=== PATIENT | female | born 1935 | race Caucasian/White ===

== ENCOUNTER 2016-03-08 14:17 | Emergency (ER) | payer OTHER ==
[~2016-03-08] VITALS: Ht 160 cm; Wt 44.8 kg
[2016-03-08] MEDS ORDERED: ZOLOFT50 MG PO (15:34)
[2016-03-08] MEDS ORDERED: DEPAKOTE125 MG PO (15:35)
[2016-03-08] MEDS ORDERED: TRAZODONE HCL50 MG PO (15:35)
[2016-03-08] MEDS ORDERED: LISINOPRIL20 MG PO (15:36)
[2016-03-08] MEDS ORDERED: REMERON15 M2 PO (15:36)
[2016-03-08 18:18] VITALS: BP 144/75
== END 2016-03-08 18:15 | disposition home or self-care (01) ==
LOC: EME 14:17
DX: S09.90XA Unspecified injury of head, initial encounter (principal); F03.90 Unspecified dementia, unspecified severity, without behavioral disturbance, psychotic disturbance, mood disturbance, and anxiety; E78.5 Hyperlipidemia, unspecified; I10 Essential (primary) hypertension; W18.30XA Fall on same level, unspecified, initial encounter; Z88.1 Allergy status to other antibiotic agents
CPT/HCPCS: 70450; 72125; 99281; 99284

== ENCOUNTER 2016-03-17 19:13 | Emergency (ER) | payer OTHER ==
[~2016-03-17 19:13] MED LIST: DEPAKOTE125 MG PO; LISINOPRIL20 MG PO; REMERON15 M2 PO; TRAZODONE HCL50 MG PO; ZOLOFT50 MG PO
== END 2016-03-17 20:15 | disposition left against medical advice (07) ==
LOC: EME 19:13
DX: S09.90XA Unspecified injury of head, initial encounter (principal); Z53.1 Procedure and treatment not carried out because of patient's decision for reasons of belief and group pressure